=== PATIENT | female | born 1945 | race Caucasian/White ===

== ENCOUNTER 2017-03-01 18:52 | Emergency (ER) | payer MEDICARE, OTHER ==
[~2017-03-01] VITALS: Ht 157.5 cm; Wt 75.3 kg
[~2017-03-01 18:52] MED LIST: ASPIRIN CHILDRE81 MG PO; HYDROCOT25 M1 PO; METFORMIN500 M1
[2017-03-01 18:58] VITALS: BP 145/74
== END 2017-03-01 21:53 | disposition home or self-care (01) ==
LOC: ED 18:52
DX: S93.402A Sprain of unspecified ligament of left ankle, initial encounter (principal); E11.9 Type 2 diabetes mellitus without complications; I10 Essential (primary) hypertension; Z90.710 Acquired absence of both cervix and uterus; W01.0XXA Fall on same level from slipping, tripping and stumbling without subsequent striking against object, initial encounter; Y93.89 Activity, other specified; Y92.89 Other specified places as the place of occurrence of the external cause; Y99.8 Other external cause status